=== PATIENT | female | born 1995 | race Caucasian/White ===

== ENCOUNTER 2022-11-28 22:44 | Inpatient (IN) | payer OTHER ==
[~2022-11-28] VITALS: Ht 162.6 cm; Wt 75.0 kg
[~2022-11-28 22:44] MED LIST: PRENATAL TABLET PO
--- NOTE | 2022-11-28 22:50 | NUR ---
G1L0. 40.0. Wheeled to LDR 5 with significant other and mother. Clean gown on. EFM and TOCO explained and applied. Pt states she was seen earlier today and was sent home because her cervix was not changing. Pt denies leaking of fluids but states "I just got more uncomforable and couldn't stand it so I came back." Pt reports good movement. States she has had some spotting since her cervix was checked this afternoon. Plan of care explained. Pt moaning and yelling through contractions. Emotional support and breathing techniques given to patient. Pt very thankful. Call light within reach.
--- NOTE | 2022-11-28 23:16 | NUR ---
Pt transfered to walking monitors per request. Pt walking in room with family support.
[2022-11-28 23:30] VITALS: BP 131/77; PULSE 85; TEMP 97.9
[2022-11-29] VITALS (70 sets, daily range): BP systolic 99–167; BP diastolic 16–98; PULSE 63–125; TEMP 97.5–99.2
--- NOTE | 2022-11-29 00:15 | NUR ---
SVE unchanged. Pt remains very uncomfortable with contractions, moaning and yelling. 0017: called and updated on pt's status. Orders to therapeutic rest patient recieved. See physican notification. Pt and family updated on new plan of care. Questions answered. 0035: IV started without difficulty. 0047: Morphine explained and administered per theraputic rest protocol and providers orders. See eMar. Pulse ox applied and pt educated to remain in bed. Pt verbalized her understanding.
--- NOTE | 2022-11-29 01:35 | NUR ---
Pt feeling much better and able to rest. Monitors off per order set. Educated pt to call out if needing to use restroom or contraction pain returns. Pt verbalized her understanding. Pt's mother remains at bedside and verbalizes her understanding as well. Call light within reach.
--- NOTE | 2022-11-29 07:23 | NUR ---
MATERNAL HEART RATE TRACING ON HEART RATE MONITOR DUE TO MATERNAL POSITION.
[2022-11-29 07:59] LABS: BASO # 0.1 K/mm3 (0.0-0.2); BASO % 0.5 % (0.0-2.0); EOS # 0.1 K/mm3 (0.0-0.7); EOS % 0.7 % (0.0-4.0); GRAN # 15.2 K/mm3 (1.4-6.5); HEMOGLOBIN 11.5 g/dl (12.5-16.0); LYMPH # 2.1 K/mm3 (1.2-3.4); LYMPH % 11.3 % (20.0-51.0); MEAN CELL VOLUME 92 fl (80.0-100.0); MEAN CORPUSCULAR HEMOGLOBIN 30 pg (27-31); MEAN CORPUSCULAR HGB CONC 33 g/dl (33.0-37.0); MEAN PLATELET VOLUME 11.7 fl (7.4-10.4); MONO # 1.2 K/mm3 (0.1-0.6); MONO % 6.4 % (1.7-9.3); PLATELET COUNT 289 K/mm3 (130-400); RED BLOOD COUNT 3.79 M/mm3 (4.10-5.30); REDCELL DISTRIBUTION WIDTH-CV 14.8 % (11.5-14.5)
[2022-11-29 08:00] LABS: HEMATOCRIT 34.7 % (37.0-47.0)
[2022-11-29 08:15] LABS: TRICYCLIC ANTIDEPRESS URINE NEGATIVE
--- NOTE | 2022-11-29 10:45 | NUR ---
1025 THIS RN AND Dana DOUGLAS RN IN ROOM. 1027 PT WEDGED LEFT. 1029 PT WEDGED RIGHT. SVE /-2. Henrietta MORRELL RN COMES INTO ROOM. 1030 PT IN [facility]. PITOCIN SHUT OFF. 1032 PT WEDGED RIGHT AGAIN. FHR RECOVERING. 1037 THIS RN LEAVING ROOM. WILL CONTINUE TO [facility] FHR MONITOR AT R DESK.
--- NOTE | 2022-11-29 12:05 | NUR ---
[address] URBANO AT PATIENT'S BEDSIDE. SVE BY DR URBANO . FHR DECELERATION NOTED. A PETROS RN COMES INTO ROOM. REPOSITIONING PT. DR URBANO ORDERS PITOCIN TO BE TURNED OFF. 1204 DR URBANO AND THIS RN LEAVING ROOM. WILL CONTINUE TO MONITOR.
--- NOTE | 2022-11-29 12:15 | NUR ---
THIS RN WALKS INTO ROOM DUE TO TOCO MOVING ON MONITOR. PT SITTING UPRIGHT PUKING. THIS RN OFFERS CARE AND HELPS FAMILY OF PT GET HER CLEANED UP. THIS RN READJUSTING TOCO MONITOR.
--- NOTE | 2022-11-29 13:40 | NUR ---
DR URBANO DOING SVE. DECELERATION NOTED. FHR RECOVERING.
--- NOTE | 2022-11-29 14:57 | NUR ---
DECELERATION NOTED AFTER SVE.
--- NOTE | 2022-11-29 15:40 | NUR ---
1529 THIS RN IN ROOM. REPOSITIONING PT. LR BOLUS GIVEN. 1532 SVE 8-9/90/0. 1535 PITOCIN OFF. 1536 PT PLACED IN KNEE CHEST. FHR RECOVERING. 1546 DR URBANO CALLED AND UPDATED ON LATE DECELERATIONS AND WHAT INTERVENTIONS WERE TAKEN. 1533 - 1550 A PETROS RN IN ROOM AT PT'S BEDSIDE ASSISTING WITH POSITIONS AND COMFORTING PT WHILE THIS RN CALLS PROVIDER.
--- NOTE | 2022-11-29 18:20 | NUR ---
PT PREPPED FOR NON-SCHEDULED PRIMARY C/S DUE TO ARREST OF DILATION. PT SITTING UP IN BED WITH AND MATERNAL MOTHER AT BEDSIDE. PT APPEARS COMFORTABLE BUT ANXIOUS ABOUT C/S. BERT, ANESTHESIA, IS AT THE BEDSIDE EDUCATING PT AND GIVING ANTIBOTICS. ALL QUESTIONS BEING ANSWERED BY BERT AT THIS TIME. ALL VSS. CHARGE NURSE, MEGHANN DOWNEY, IN ROOM TO HELP TRANSPORT PT TO O.R. VIA BED AT 1835.
--- NOTE | 2022-11-29 18:50 | NUR ---
PRIMARY C/S DUE TO ARREST OF DILATION. SPOT CHECK COMPLETED IN O.R.FOR FHT DONE AT 1840, BASELINE 145.LIVE OF BABY BOY AT 1850. PLACENTA AT 1852, MEWBORN AND PLACENTA BOTH MECONIUM STAINED. NURSERY NURSE, LUCI, TAKING CARE OF . PT DID NOT TOLORATE C/S WELL, VERY AGGITATED. MOVING ARMS, LEGS, TORSO, ABLE TO ARCH HER BACK DURING CASE. AFTER CASE FINISHED, PT STILL AGGITATED AND TRYING TO GET OFF THE TABLE. ANESTHESIA LIFTED PT FROM TABLE TO BED DUE TO PT NOT COOPERATING. SEE ANESTHESIA RECORD FOR MEDICATIONS GIVEN DURING CASE.
--- NOTE | 2022-11-29 19:30 | NUR ---
PT AWAKE AND ALERT. PT NOT COMFORTABLE, VERY AGITATED. ANESTHESIA AT BEDSIDE WITH THIS RN TO HELP SETTLE PT. ORDERS FOR PRN IV MORPHINE RECEIVED FOR PT STATED PN. PT NOT ABLE TO BE STILL DUE TO PAIN AND ANXIETY. ALL VSS AND ESPOSITO PATENT, PT ON ROOM AIR. PT AT THE BEDSIDE TO HELP ASSIST WITH PT STATED ANXIETY. LOCHIA AND FUNDUS WNL. IV PATENT. PT SETTLED WITH A PN SCORE OF 5/10 AT 2009, ANESTHESIA NOTIFIED OF TOTAL MORPHINE GIVEN AT THIS TIME. ONE ON ONE WITH THIS RN. COOL RAGS APPLIED TO PT HEAD, NECK AND CHEST.
--- NOTE | 2022-11-29 20:30 | NUR ---
PT AGITATED AND UNCOMFORTABLE. ANESTHESIA AT THE BEDSIDE ALONG WITH THIS RN TO HELP SETTLE PT ALONG WITH PT . PT EXPERIENCING PN OF 10/10. PN MEDICATIONS GIVEN, SEE SEP. AT 2009 PT WOULD SETTLE AND SPEAK CALMLY AND REPORT PN TO BE 5/10 WITH MEDICATION AND SPORADICALLY START MOVING ALL EXTREMITIES AND REPORT PN TO BE 10/10 WITHIN THE MINUTE. PT STABLE FOR PP UNIT. THIS RN AND DAVID VERDUZCO RN, TO MOVE PT VIA BED TO PP UNIT. PT CALM FOR TRANSPORT AND REPORTS PN IS MANAGEABLE. DR. URBANO UPDATED.
--- NOTE | 2022-11-29 23:00 | NUR ---
2300 IV TO INT. EPID CATH REMOVED. PERICARE DONE. MOVES WELL IN BED.
[2022-11-30 02:00] VITALS: BP 122/70; PULSE 66; TEMP 98
[2022-11-30 07:10] VITALS: BP 120/68; PULSE 75; TEMP 97.5
--- NOTE | 2022-11-30 08:56 | NUR ---
Head Cd Reactor Operator met with Patient, Baby, and Baby's Father, Troy P:[phone] at bedside to conduct Social Service Assessment. Patient lives in [place], [place] with her partner Troy. Patient reports to be established with Dr. Rojas for PCP and is covered by insurance carrier [id number]. Patient reports that Baby will be covered by her insurance for ~40 days during which she intends to select an insurance carrier for Baby. Patient reports that she is not currently established with [facility], SW briefed Patient on [facility] benefits and reccommended that she reach out to the [facility] to establish services. Patient reports having reliable transportation, a carseat, and other equipment needed for Baby at home. Patient tested positive for substances in April of 2022 and upon admission. Patient states that her recent use was THC and that she does not use on a regular basis. Patient reports to nursing staff that she does not intend to nurse Baby. Patient states that she has formula for Baby at home. Head Cd Reactor Operator completed an APS report, #[id number].
--- NOTE | 2022-11-30 09:03 | NUR ---
Initial visit; Parents thanked for offering congratulations for the of their son. thanked family for choosing our hospital.
[2022-11-30 10:40] VITALS: BP 136/77; PULSE 78; TEMP 98.2
[2022-11-30 15:00] VITALS: BP 128/78; PULSE 68
[2022-11-30 20:30] VITALS: BP 147/74; PULSE 77; TEMP 98.9
[2022-12-01] VITALS: BP 133/81
[2022-12-01] MEDS ORDERED: MOTRIN 800800 MG/TAB PO (06:01)
[2022-12-01] MEDS ORDERED: PERCOCET 325 MG1 TA2 PO (06:01)
[2022-12-01 07:30] VITALS: BP 121/75; PULSE 68; TEMP 97.6
== END 2022-12-01 10:00 | disposition home or self-care (01) | DRG 787 ==
LOC: LDRO 22:44 → LDR 11-29 07:16 → OB 11-29 07:16
PROVIDERS: ADMIT Obstetrics & Gynecology
PROC: 10D00Z1 Extraction of Products of Conception, Low, Open Approach (ICD-10-PCS; principal; 2022-11-29)
DX: O48.0 Post-term pregnancy (principal); O99.323 Drug use complicating pregnancy, third trimester; Z37.0 Single live birth; O62.0 Primary inadequate contractions; O99.824 Streptococcus B carrier state complicating childbirth; O99.344 Other mental disorders complicating childbirth; F90.9 Attention-deficit hyperactivity disorder, unspecified type; O77.0 Labor and delivery complicated by meconium in amniotic fluid; F12.90 Cannabis use, unspecified, uncomplicated; Z3A.40 40 weeks gestation of pregnancy
CPT/HCPCS: J0690; J2270; J2401; J2405; J2540; J2590; J2791; J2795; J3010; J7120